=== PATIENT | female | born 1995 | race Caucasian/White ===

== ENCOUNTER 2019-12-21 14:13 | Emergency (ER) | payer MEDICAID ==
[~2019-12-21] VITALS: Ht 170.2 cm; Wt 130.2 kg
[2019-12-21 14:18] VITALS: BP 127/78
--- NOTE | 2019-12-21 14:20 | NUR ---
PT AMBULATED TO BED 07
--- NOTE | 2019-12-21 14:23 | NUR ---
PT C/O LACERATION TO RT 5TH DIGIT APPROX 1/2 CM. PT REPORTS SHE CUT HER FINGER ON A METAL CAN X 20 MIN PRIOR TO ARRIVAL. PT IS ALSO 24 WKS . 4. NO GESTATIONAL COMPLAINTS AT THIS TIME. VS STABLE. PT ALERT AND AWAKE, AMBULATORY WITH STEADY GAIT. MEDHX: DENIES
--- NOTE | 2019-12-21 14:30 | NUR ---
CALLED [facility] AND INFORMED THAT PT IS OVER 20 WEEKS WITH NO GESTATIONAL COMPLAINTS ATTHIS TIME, THEY STATE TO PERFORM HEART TONES AND CALL THEM IF THEY ARENT FOUND.
[2019-12-21] MEDS: ACETAMINOPHEN EXTRA STRENGTH 500 MG TAB PO ONE (14:39)
--- NOTE | 2019-12-21 14:39 | NUR ---
[facility] AT BEDSIDE FOR LAC REPAIR USING DERMABOND AND STERISTRIPS
--- NOTE | 2019-12-21 14:39 | NUR ---
TYLENOL PO ADMINISTRED
--- NOTE | 2019-12-21 14:59 | NUR ---
SPLINT APPLIED BY [facility]. PULSES WNL
--- NOTE | 2019-12-21 15:01 | NUR ---
TDAP VACCINE ADMINISTERED, PT SIGNED CONSENT
--- NOTE | 2019-12-21 15:01 | NUR ---
HEART TONES FOUND WITH [facility] USING ULTRASOUND. 125 BPM
[2019-12-21 15:07] VITALS: BP 127/78
--- NOTE | 2019-12-21 15:07 | NUR ---
NADR, PAIN 12/14
== END 2019-12-21 15:07 | disposition home or self-care (01) ==
LOC: MED 14:13
DX: O9A.212 Injury, poisoning and certain other consequences of external causes complicating pregnancy, second trimester (principal); S61.214A Laceration without foreign body of right ring finger without damage to nail, initial encounter; Z3A.24 24 weeks gestation of pregnancy; W26.8XXA Contact with other sharp object(s), not elsewhere classified, initial encounter; Y93.89 Activity, other specified; Y92.89 Other specified places as the place of occurrence of the external cause; Y99.8 Other external cause status
CPT/HCPCS: 12001; 90471; 90715; 99283

== ENCOUNTER 2020-04-08 05:01 | Inpatient (IN) | payer MEDICAID, SELFPAY ==
[~2020-04-08] VITALS: Ht 175.3 cm; Wt 126.1 kg
[2020-04-08] MEDS ORDERED: LACTATED RINGERS 1,000 ML IV SCH (05:15)
[2020-04-08 05:34] VITALS: BP 107/56
[2020-04-08] MEDS ORDERED: ceFAZolin 1,000 MG VIAL ONE ×2 (06:15→10:42)
[2020-04-08] MEDS ORDERED: CITRIC ACID/SODIUM CITRATE 30 ML UDC PO ONE (06:15)
[2020-04-08] MEDS ORDERED: CITRIC ACID/SODIUM CITRATE 30 ML UDC ONE (06:24)
[2020-04-08 06:25] LABS: BASOPHILS % (AUTO) 0.3 % (0.0-2.0); EOSINOPHILS # (AUTO) 0.1 K/uL (0-0.4); EOSINOPHILS % (AUTO) 1.9 % (0.0-4.0); HEMATOCRIT 34.6 % (36-48); HEMOGLOBIN 11.5 g/dL (12.0-16.0); MEAN CORPUSCULAR HEMOGLOBIN 28 pg (27-31); MEAN CORPUSCULAR HGB CONC 33 g/dL (33-37); MEAN CORPUSCULAR VOLUME 85.6 fL (80-94); MONOCYTES # (AUTO) 0.5 K/uL (0.8-1.0); MONOCYTES % (AUTO) 7.1 % (1.7-9.3); NEUTROPHILS % (AUTO) 60.7 % (42.2-75.2); PLATELET COUNT (AUTO) 199 K/uL (140-450); RED BLOOD CELL COUNT(AUTO) 4.04 MIL/uL (4.20-5.40); RED CELL DISTRIBUTION WIDTH 14.7 % (11.6-13.7); WHITE BLOOD COUNT (AUTO) 6.5 K/uL (4.8-10.8)
[2020-04-08 07:31] LABS: APPEARANCE,URINE SL CLOUDY (CLEAR); BILIRUBIN,URINE 1+ (NEGATIVE); BLOOD, URINE NEGATIVE (NEGATIVE); COLOR,URINE AMBER (YELLOW); LEUKOCYTE ESTERASE ,URINE NEGATIVE (NEGATIVE); NITRITE, URINE NEGATIVE (NEGATIVE); UGLUCOSE NEGATIVE (NEGATIVE)
--- NOTE | 2020-04-08 09:05 | NUR ---
PATIENT HAS BEEN SCREENED AND CATEGORIZED LOW NUTRITION RISK. PATIENT WILL BE SEEN WITHIN 7 DAYS OF ADMISSION. 04/14/[address]
[2020-04-08] MEDS ORDERED: MORPHINE PRES FREE 10 MG/10 ML AMP IV ONE (10:41)
[2020-04-08] MEDS ORDERED: OXYTOCIN 10 UNITS/ML VIAL ONE (10:42)
[2020-04-08] MEDS ORDERED: ONDANSETRON 4 MG/2 ML VIAL ONE (10:42)
[2020-04-08] MEDS ORDERED: OXYTOCIN 10 UNITS in LACTATED RINGERS 1,000 ML IV SCH ×2 (10:47→11:54)
[2020-04-08] MEDS ORDERED: METHYLERGONOVINE 0.2 MG/ML AMP IM PRN ×2 (10:50→11:55)
[2020-04-08] MEDS ORDERED: MEASLES, MUMPS, AND RUBELLA 1 VIAL SQVAC PRN ×2 (10:50→11:55)
[2020-04-08] MEDS ORDERED: KETOROLAC 30 MG/ML VIAL IVP PRN (11:15)
[2020-04-08] MEDS ORDERED: NALOXONE 0.4 MG/ML VIAL IVP PRN ×2 (11:15)
[2020-04-08] MEDS ORDERED: ONDANSETRON 4 MG/2 ML VIAL IVP PRN (11:15)
[2020-04-08] MEDS ORDERED: oxyCODONE/APAP 5/325 MG 1 TAB TAB PO PRN (11:55)
[2020-04-08] MEDS ORDERED: OXYTOCIN 20 UNITS/LR PREMIX 1,000 ML IV ONE (12:04)
[2020-04-08] MEDS: diphenhydrAMINE 50 MG/ML VIAL IVP PRN ×2 (12:20→21:14)
[2020-04-08 12:32] LABS: RAPID PLASMA REAGIN NON-REACTIVE (Non Reactiv)
[2020-04-08] MEDS ORDERED: PROMETHAZINE 25 MG/ML VIAL IVP PRN ×2 (18:45)
[2020-04-08] MEDS: OXYTOCIN 20 UNITS in LACTATED RINGERS 1,000 ML IV SCH ×2 (19:30→23:50)
[2020-04-09] MEDS ORDERED: OXYTOCIN 20 UNITS/LR PREMIX 1,000 ML IV ONE (03:31)
[2020-04-09 06:23] LABS: BASOPHILS % (AUTO) 0.2 % (0.0-2.0); EOSINOPHILS # (AUTO) 0.1 K/uL (0-0.4); EOSINOPHILS % (AUTO) 0.8 % (0.0-4.0); HEMATOCRIT 31.7 % (36-48); HEMOGLOBIN 10.8 g/dL (12.0-16.0); LYMPHOCYTES # (AUTO) 1.6 K/uL (2.5-16.5); LYMPHOCYTES % (AUTO) 19.9 % (20.5-51.1); MEAN CORPUSCULAR HEMOGLOBIN 29 pg (27-31); MEAN CORPUSCULAR HGB CONC 34 g/dL (33-37); MEAN CORPUSCULAR VOLUME 85.1 fL (80-94); MONOCYTES # (AUTO) 0.6 K/uL (0.8-1.0); NEUTROPHILS # (AUTO) 5.9 K/uL (1.8-7.7); NEUTROPHILS % (AUTO) 72.1 % (42.2-75.2); PLATELET COUNT (AUTO) 172 K/uL (140-450); RED BLOOD CELL COUNT(AUTO) 3.73 MIL/uL (4.20-5.40); RED CELL DISTRIBUTION WIDTH 14.7 % (11.6-13.7); WHITE BLOOD COUNT (AUTO) 8.1 K/uL (4.8-10.8)
[2020-04-09] MEDS: oxyCODONE/APAP 5/325 MG 1 TAB TAB PO PRN ×3 (08:44→21:46)
[2020-04-09] MEDS ORDERED: bisacodyL 10 MG SUPP RC SCH ×2 (09:00)
[2020-04-09] MEDS ORDERED: OXYTOCIN 20 UNITS in LACTATED RINGERS 1,000 ML IV SCH (10:47)
[2020-04-10] MEDS: oxyCODONE/APAP 5/325 MG 1 TAB TAB PO PRN ×4 (01:30→21:51)
[2020-04-11] MEDS ORDERED: CAMERA MC ONE (00:52)
[2020-04-11] MEDS: oxyCODONE/APAP 5/325 MG 1 TAB TAB PO PRN (05:00)
== END 2020-04-11 12:50 | disposition home or self-care (01) | DRG 540 ==
LOC: MFCC 05:01
PROVIDERS: ADMIT Obstetrics & Gynecology; ATTEND Obstetrics & Gynecology
PROC: 0UB70ZZ Excision of Bilateral Fallopian Tubes, Open Approach (ICD-10-PCS; 2020-04-08)
PROC: 3E0234Z Introduction of Serum, Toxoid and Vaccine into Muscle, Percutaneous Approach (ICD-10-PCS; 2020-04-08)
PROC: 10D00Z1 Extraction of Products of Conception, Low, Open Approach (ICD-10-PCS; principal; 2020-04-08 09:30)
DX: O24.429 Gestational diabetes mellitus in childbirth, unspecified control (principal); O34.211 Maternal care for low transverse scar from previous cesarean delivery; Z3A.38 38 weeks gestation of pregnancy; Z37.0 Single live birth; O60.23X0 Term delivery with preterm labor, third trimester, not applicable or unspecified; Z30.2 Encounter for sterilization; O99.62 Diseases of the digestive system complicating childbirth; K66.0 Peritoneal adhesions (postprocedural) (postinfection); Z23 Encounter for immunization; Z20.828 Contact with and (suspected) exposure to other viral communicable diseases
CPT/HCPCS: 36415; 81001; 85025; 86592; 86886; 86900; 86901; 87081; 87086; 88302; J0690; J1200; J1885; J2210; J2270; J2405; J2590; J7120; U0003-CS

== ENCOUNTER 2020-05-07 11:57 | Emergency (ER) | payer MEDICAID, SELFPAY ==
[~2020-05-07] VITALS: Ht 177.8 cm; Wt 117.5 kg
[2020-05-07 12:04] VITALS: BP 114/69
--- NOTE | 2020-05-07 12:30 | NUR ---
triaged and sent to tent.
== END 2020-05-07 13:07 | disposition home or self-care (01) ==
LOC: MED 11:57
DX: B34.9 Viral infection, unspecified (principal); Z20.828 Contact with and (suspected) exposure to other viral communicable diseases
CPT/HCPCS: 99283; U0003